=== PATIENT | male | born 1960 | race Caucasian/White ===

== ENCOUNTER → 2016-10-24 | Outpatient (CLI) | payer OTHER, MEDICAID ==
[~2016-10-24] MED LIST: ACET-1600 PO; ALBU0.63 NEB; ALBU90AE INH; ASCO500C2 PO; ATOR80TA75 PO; CEPH-375 PO; CHOL100011 PO; GABA300C10 PO; HYDR-3240 PO; HYDR15SO3 PO; LIDO1KIT TD; LORA-446 PO; NICO1PAT4 TD; None per pt; OMEP20TA62 PO; OMEP40CA6 PO; ONDA4TAB13 SL; ONDA4TAB7 PO; ONDA8TAB16 SL; OXYC-229 PO; OXYC-302 PO; OXYC30TA66 PO; OXYC5CAP4 PO; PANT40TA5 PO; POTA20TA14 PO; PROC10TA PO; PROC5TAB40 PO; SUCR1TAB PO; VITA100T6 PO
== END | disposition home or self-care (01) ==
LOC: STAR 14:47
PROVIDERS: ATTEND Internal Medicine Gastroenterology
DX: Z01.818 Encounter for other preprocedural examination (principal); K92.2 Gastrointestinal hemorrhage, unspecified; R11.2 Nausea with vomiting, unspecified
CPT/HCPCS: 93005

== ENCOUNTER 2016-10-28 05:18 | Day surgery (SDC) | payer OTHER, MEDICAID ==
[~2016-10-28] VITALS: Ht 172.7 cm; Wt 77.0 kg
[2016-10-28] MEDS ORDERED: LACTATED RINGERS 1,000 ML IV SCH (06:06)
[2016-10-28 06:07] VITALS: BP 118/75
[2016-10-28] MEDS ORDERED: MIDAZOLAM 1 MG/ML, 2ML ONE (07:06)
[2016-10-28] MEDS ORDERED: PROPOFOL 10 MG/ML, 20ML ONE (07:40)
== END 2016-10-28 11:20 | disposition home or self-care (01) ==
LOC: OR 05:18 → OUT 11:20
PROVIDERS: ATTEND Internal Medicine Gastroenterology
DX: C16.0 Malignant neoplasm of cardia (principal); K22.5 Diverticulum of esophagus, acquired; K22.10 Ulcer of esophagus without bleeding; K29.00 Acute gastritis without bleeding; K29.50 Unspecified chronic gastritis without bleeding; J44.9 Chronic obstructive pulmonary disease, unspecified; F17.210 Nicotine dependence, cigarettes, uncomplicated
CPT/HCPCS: 43239; 88305; J2250; J2704; J7120

== ENCOUNTER → 2016-11-17 | Outpatient (CLI) | payer MEDICAID, OTHER | END | disposition home or self-care (01) | LOC: CFH 08:36 | PROVIDERS: ATTEND Internal Medicine Hematology & Oncology | DX: C15.5 Malignant neoplasm of lower third of esophagus (principal) | CPT/HCPCS: 93306 ==

== ENCOUNTER 2016-11-21 07:12 | Emergency (ER) | payer MEDICAID ==
[~2016-11-21] VITALS: Ht 172.7 cm; Wt 78.0 kg
[~2016-11-21 07:12] MED LIST changes: +OXYC10TA32 PO
[2016-11-21] MEDS ORDERED: SODIUM CHLORIDE 0.9% 1,000ML IVBOLUS ONE (07:30)
[2016-11-21 07:43] LABS: HEMOGLOBIN 13.8 g/dL (13.7-18.0)
[2016-11-21] MEDS ORDERED: LORazepam 2 MG/ML, 1ML ONE (07:46)
[2016-11-21 07:54] LABS: ASPARTATE AMINO TRANSFERASE 12 U/L (15-37); BLOOD UREA NITROGEN 5 mg/dL (7-18)
[2016-11-21 08:00] LABS: IS PT STATUS REG ER OR PRE ER? YES
[2016-11-21] MEDS ORDERED: LORazepam 2 MG/ML, 1ML IVPush ONE (08:00)
[2016-11-21 09:04] VITALS: BP 122/56
== END 2016-11-21 09:07 | disposition home or self-care (01) ==
LOC: ED 08:17
DX: R06.00 Dyspnea, unspecified (principal); F41.1 Generalized anxiety disorder; R06.4 Hyperventilation; C78.89 Secondary malignant neoplasm of other digestive organs; J44.9 Chronic obstructive pulmonary disease, unspecified; Z90.49 Acquired absence of other specified parts of digestive tract; F17.210 Nicotine dependence, cigarettes, uncomplicated
CPT/HCPCS: 36415; 71010; 80053; 84484; 85025; 93005; 96361; 96374; 99285; J2060; J7030

== ENCOUNTER 2017-01-15 11:42 | Emergency (ER) | payer SELFPAY ==
[~2017-01-15] VITALS: Ht 172.7 cm; Wt 74.4 kg
[2017-01-15] MEDS ORDERED: SODIUM CHLORIDE 0.9% 1,000ML IVBOLUS ONE (14:00)
[2017-01-15] MEDS ORDERED: SODIUM CHLORIDE FLUSH 10ML SYR IVF ONE (14:00)
[2017-01-15] MEDS ORDERED: METOCLOPRAMIDE 5 MG/ML, 2ML IVPush ONE (14:00)
[2017-01-15] MEDS ORDERED: DIPHENHYDRAMINE 50 MG/ML, 1ML IVPush ONE (14:00)
[2017-01-15] MEDS ORDERED: HYDROmorphone 1 MG/ML, 1ML ONE ×3 (14:09→16:56)
[2017-01-15] MEDS ORDERED: DIPHENHYDRAMINE 50 MG/ML, 1ML ONE (14:09)
[2017-01-15] MEDS ORDERED: METOCLOPRAMIDE 5 MG/ML, 2ML ONE (14:16)
[2017-01-15] MEDS: HYDROmorphone 1 MG/ML, 1ML IVPush PRN ×2 (14:25→15:34)
[2017-01-15 14:29] LABS: ASPARTATE AMINO TRANSFERASE 23 U/L (15-37); BLOOD UREA NITROGEN 10 mg/dL (7-18)
[2017-01-15 15:37] VITALS: BP 115/81
[2017-01-15] MEDS ORDERED: HYDROmorphone 2 MG/ML, 1ML IVPush PRN (17:00)
== END 2017-01-15 17:43 | disposition home or self-care (01) ==
LOC: ED 17:37
DX: R10.84 Generalized abdominal pain (principal); G89.29 Other chronic pain; R11.2 Nausea with vomiting, unspecified; Z88.0 Allergy status to penicillin; J44.9 Chronic obstructive pulmonary disease, unspecified; Z85.01 Personal history of malignant neoplasm of esophagus; Z85.05 Personal history of malignant neoplasm of liver
CPT/HCPCS: 36415; 71010; 80053; 81001; 83605; 84145; 85025; 85610; 85730; 87040; 87086; 93005; 96361; 96374; 96375; 96376; 99285; J1170; J1200; J2765; J7030

== ENCOUNTER → 2017-03-26 | Outpatient (CLI) | payer BC, MEDICAID, OTHER | END | disposition home or self-care (01) | LOC: EDSTATUS 01-09 10:34 → ROC 08:28 | PROVIDERS: ATTEND Radiology Radiation Oncology | DX: C15.5 Malignant neoplasm of lower third of esophagus (principal); C78.7 Secondary malignant neoplasm of liver and intrahepatic bile duct; J44.9 Chronic obstructive pulmonary disease, unspecified; K21.9 Gastro-esophageal reflux disease without esophagitis; F17.210 Nicotine dependence, cigarettes, uncomplicated; Z88.0 Allergy status to penicillin; Z90.49 Acquired absence of other specified parts of digestive tract; Z92.3 Personal history of irradiation | CPT/HCPCS: 99212; G0463 ==

== ENCOUNTER 2017-04-23 05:55 | Day surgery (SDC) | payer BC ==
[~2017-04-23] VITALS: Ht 174 cm; Wt 64.3 kg
[~2017-04-23 05:55] MED LIST changes: +ATOR-2 PO; -ATOR80TA75 PO; +NICO1PAT13 TD; -NICO1PAT4 TD; -OXYC-229 PO; +OXYC-307 PO; -OXYC10TA32 PO; +OXYC10TA47 PO; +OXYC5CAP2 PO; -OXYC5CAP4 PO
[2017-04-23] MEDS ORDERED: METO5TAB57 PO (07:02)
[2017-04-23] MEDS ORDERED: MORP10CA7 PO (07:02)
[2017-04-23] MEDS ORDERED: ALBU0.63 NEB (07:02)
[2017-04-23] MEDS ORDERED: LACTATED RINGERS 1,000 ML IV SCH ×2 (07:07→07:30)
[2017-04-23 07:08] VITALS: BP 132/90
[2017-04-23] MEDS ORDERED: SIMETHICONE DROPS 40 MG/0.6 ML BOTTLE ONE (07:21)
[2017-04-23] MEDS ORDERED: ALBUTEROL SULFATE 2.5 MG/3 ML NPPB PRN (08:00)
[2017-04-23] MEDS ORDERED: ONDANSETRON 2MG/ML, 2ML IVPush PRN (08:00)
[2017-04-23] MEDS ORDERED: ACETAMINOPHEN 325 MG TABLET PO PRN (08:00)
[2017-04-23] MEDS ORDERED: hydrALAzine 20 MG/ML, 1ML IV PRN (08:00)
[2017-04-23] MEDS ORDERED: FENTANYL PF 100 MCG/2ML IV PRN (08:00)
[2017-04-23] MEDS ORDERED: EPHEDRINE 50 MG/ML, 1ML IVPush PRN (08:00)
[2017-04-23] MEDS ORDERED: METOPROLOL 1 MG/ML, 5ML IV PRN (08:00)
[2017-04-23] MEDS ORDERED: OXYcodone 5 MG/5 ML ORAL.SOL UDC PO PRN (08:00)
[2017-04-23] MEDS ORDERED: METOCLOPRAMIDE 5 MG/ML, 2ML IV PRN (08:00)
[2017-04-23] MEDS ORDERED: LABETALOL 5MG/ML, 20ML IV PRN (08:00)
[2017-04-23] MEDS ORDERED: HYDROcodone/APAP 7.5-325MG/15ML UDC PO PRN (08:00)
[2017-04-23] MEDS ORDERED: PROMETHAZINE 25 MG/ML, 1ML IV PRN (08:00)
[2017-04-23] MEDS ORDERED: HYDROmorphone 1 MG/ML, 1ML IV PRN (08:00)
[2017-04-23] MEDS ORDERED: MIDAZOLAM 1 MG/ML, 2ML ONE (08:04)
[2017-04-23] MEDS ORDERED: LEUCOVORIN 5MG TABLET ONE (08:06)
[2017-04-23] MEDS ORDERED: METOPROLOL 1 MG/ML, 5ML ONE (08:06)
[2017-04-23] MEDS ORDERED: ONDANSETRON 2MG/ML, 2ML ONE (08:06)
[2017-04-23] MEDS ORDERED: ROCURONIUM 10 MG/ML ONE ×2 (08:06)
[2017-04-23] MEDS ORDERED: METOCLOPRAMIDE 5 MG/ML, 2ML ONE (08:06)
[2017-04-23] MEDS ORDERED: DEXAMETHASONE 4 MG/ML, 1ML ONE (08:06)
[2017-04-23] MEDS ORDERED: PROPOFOL 10 MG/ML, 20ML ONE (08:06)
== END 2017-04-23 09:55 | disposition home or self-care (01) ==
LOC: OUT 05:55
PROVIDERS: ATTEND Internal Medicine Gastroenterology
DX: K29.50 Unspecified chronic gastritis without bleeding (principal); C16.0 Malignant neoplasm of cardia; C15.9 Malignant neoplasm of esophagus, unspecified; Z88.0 Allergy status to penicillin; Z86.73 Personal history of transient ischemic attack (TIA), and cerebral infarction without residual deficits; Z86.14 Personal history of Methicillin resistant Staphylococcus aureus infection
CPT/HCPCS: 43239; 88305; J1100; J2250; J2405; J2704; J2765; J7120